=== PATIENT | female | born 1955 | race Caucasian/White ===

== ENCOUNTER 2021-11-02 14:14 | Emergency (ER) | payer MEDICARE, MEDICAID ==
[~2021-11-02 14:14] MED LIST: FAMO-1 PO
== END 2021-11-02 16:04 | disposition left against medical advice (07) ==
LOC: ER 14:14
DX: K46.9 Unspecified abdominal hernia without obstruction or gangrene (principal); Z53.21 Procedure and treatment not carried out due to patient leaving prior to being seen by health care provider

== ENCOUNTER 2021-11-03 04:10 | Emergency (ER) | payer MEDICARE, MEDICAID ==
[~2021-11-03] VITALS: Ht 149.9 cm; Wt 45.6 kg
[2021-11-03 04:15] VITALS: BP 172/80
[2021-11-03 04:43] LABS: CLARITY,URINE CLEAR (Clear); COLOR,URINE YELLOW (Yellow); GLUCOSE, URINE NEGATIVE (Neg); KETONES,URINE NEGATIVE (Neg); LEUKOCYTE ESTERASE ,URINE NEGATIVE (Neg); NITRITES, URINE NEGATIVE (Neg); OCCULT BLOOD,URINE SMALL (Neg); PH,URINE 5.5 (4.8-8.0); PROTEIN,URINE NEGATIVE (Neg); UROBILINOGEN,URINE 0.2 E.U/dL (0.2-1.0)
[2021-11-03 04:46] LABS: BASOPHILS % (AUTO) 0.5 % (0-1); EOSINOPHILS # (AUTO) 0.3 X10'3 (0-0.9); EOSINOPHILS % (AUTO) 3.4 % (0-6); HEMATOCRIT 42.2 % (35.0-45.0); LYMPHOCYTES # (AUTO) 2.3 X10'3 (1.1-4.8); LYMPHOCYTES % (AUTO) 30.9 % (21-51); MEAN CORPUSCULAR HEMOGLOBIN 29.9 PG (27.0-31.0); MEAN CORPUSCULAR HGB CONC 33.1 g/dL (33.0-36.5); MEAN CORPUSCULAR VOLUME 90.6 FL (78-98); MEAN PLATELET VOLUME 7.7 FL (7.4-10.4); MONOCYTES # (AUTO) 0.7 X10'3 (0-0.9); MONOCYTES % (AUTO) 9.4 % (2-12); NEUTROPHILS # (AUTO) 4.1 X10'3 (1.8-7.7); NEUTROPHILS % (AUTO) 55.8 % (42-75); PLATELET COUNT 238 X10'3 (140-440); RED BLOOD COUNT 4.66 X10'6 (4.20-5.60); RED CELL DISTRIBUTION WIDTH 13.5 % (11.5-14.5); WHITE BLOOD COUNT 7.3 X10'3 (4.5-11.0)
[2021-11-03 04:56] LABS: ALANINE AMINOTRANSFERASE 20 U/L (12-78); ALBUMIN 3.8 G/DL (3.4-5.0); ALBUMIN/GLOBULIN RATIO 1.2 (1.1-1.5); ALKALINE PHOSPHATASE 92 IU/L (46-116); ANION GAP 9 (8-16); ASPARTATE AMINO TRANSFERASE 15 U/L (10-37); BILIRUBIN,TOTAL 0.3 MG/DL (0.1-1.0); BLOOD UREA NITROGEN 17 MG/DL (7-18); BUN/CREATININE RATIO 15.9 (6.6-38.0); CALCIUM 8.8 MG/DL (8.5-10.1); CHLORIDE 105 MMOL/L (99-107); CREATININE 1.07 MG/DL (0.40-0.90); GLUCOSE 67 MG/DL (70-104); LIPASE 78 U/L (73-393); POTASSIUM 3.7 MMOL/L (3.5-5.1); SODIUM 144 MMOL/L (135-145); TOTAL PROTEIN 6.9 G/DL (6.4-8.2); eGFR 51 ML/MIN
[2021-11-03 05:27] LABS: UA COLLECTION TYPE CLN CATCH MIDSTREAM
[2021-11-03 05:28] LABS: BACTERIA,URINE NONE SEEN /HPF (Neg); MUCUS STRANDS FEW /LPF (Neg); RBC,URINE 0-2 /HPF (0-2); SQUAMOUS EPITHELIAL CELL,UR FEW /LPF (FEW)
--- NOTE | 2021-11-03 06:39 | NUR ---
DR. SULLIVAN AT BEDSIDE TO D/C PT.
== END 2021-11-03 06:46 | disposition home or self-care (01) ==
LOC: ER 04:11
DX: R10.32 Left lower quadrant pain (principal); R82.71 Bacteriuria; R11.2 Nausea with vomiting, unspecified; Z60.2 Problems related to living alone; Z98.890 Other specified postprocedural states; Z88.8 Allergy status to other drugs, medicaments and biological substances; Z88.5 Allergy status to narcotic agent; Z88.0 Allergy status to penicillin; Z79.899 Other long term (current) drug therapy
CPT/HCPCS: 36415; 74176; 80053; 81001; 83690; 85025; 87088; 99284

== ENCOUNTER 2022-05-17 16:22 | Emergency (ER) | payer MEDICARE, MEDICAID ==
[~2022-05-17] VITALS: Ht 149.9 cm; Wt 45.5 kg
[2022-05-17] MEDS ORDERED: normal saline 1000ML IV soln IVB ONE (16:50)
[2022-05-17] MEDS ORDERED: LIDOcaine 1% W/epiNEPHrine 1:100,000 20ml vial SQ ONE (17:00)
[2022-05-17] MEDS ORDERED: ibuprofen tablet 400 MG TABLET PO ONE (17:35)
[2022-05-17 17:46] LABS: BASOPHILS % (AUTO) 0.3 % (0-1); EOSINOPHILS # (AUTO) 0.1 X10'3 (0-0.9); EOSINOPHILS % (AUTO) 1.2 % (0-6); HEMATOCRIT 43.8 % (35.0-45.0); HEMOGLOBIN 14.6 g/dl (12.0-16.0); LYMPHOCYTES # (AUTO) 1.6 X10'3 (1.1-4.8); LYMPHOCYTES % (AUTO) 14.8 % (21-51); MEAN CORPUSCULAR HGB CONC 33.5 g/dL (33.0-36.5); MEAN CORPUSCULAR VOLUME 89.6 FL (78-98); MEAN PLATELET VOLUME 8.1 FL (7.4-10.4); MONOCYTES # (AUTO) 0.6 X10'3 (0-0.9); MONOCYTES % (AUTO) 5.9 % (2-12); NEUTROPHILS # (AUTO) 8.2 X10'3 (1.8-7.7); NEUTROPHILS % (AUTO) 77.8 % (42-75); PLATELET COUNT 240 X10'3 (140-440); RED BLOOD COUNT 4.88 X10'6 (4.20-5.60); RED CELL DISTRIBUTION WIDTH 13.8 % (11.5-14.5); WHITE BLOOD COUNT 10.6 X10'3 (4.5-11.0)
[2022-05-17 17:59] LABS: ALANINE AMINOTRANSFERASE 22 U/L (12-78); ALBUMIN 3.6 G/DL (3.4-5.0); ALKALINE PHOSPHATASE 93 IU/L (46-116); ANION GAP 6 (8-16); ASPARTATE AMINO TRANSFERASE 25 U/L (10-37); BILIRUBIN,TOTAL 0.3 MG/DL (0.1-1.0); BLOOD UREA NITROGEN 15 MG/DL (7-18); BUN/CREATININE RATIO 11.3 (6.6-38.0); CALCIUM 9.1 MG/DL (8.5-10.1); CHLORIDE 101 MMOL/L (99-107); CREATININE 1.33 MG/DL (0.40-0.90); GLUCOSE 139 MG/DL (70-104); POTASSIUM 4.3 MMOL/L (3.5-5.1); SODIUM 137 MMOL/L (135-145); TOTAL CARBON DIOXIDE 29.8 MMOL/L (24-32); TOTAL PROTEIN 7.1 G/DL (6.4-8.2); eGFR 40 ML/MIN
--- NOTE | 2022-05-17 18:30 | NUR ---
ASSUMED CARE OF PT. PT HAS NO COMPLAINTS AT PRESENT. FAMILY AT BEDSIDE. TECH HAS CLEANED WOUND. SUTURE TRAY IS SET UP.
--- NOTE | 2022-05-17 18:50 | NUR ---
BRIDGETT IN ROOM SUTURING PT.
[2022-05-17] MEDS ORDERED: clindamycin 150mg capsule PO ONE ×2 (19:00)
[2022-05-17] MEDS ORDERED: CLIN150C2 PO (19:06)
[2022-05-17 20:25] VITALS: BP 140/80
== END 2022-05-17 20:33 | disposition home or self-care (01) ==
LOC: ER 16:23
DX: S62.305B Unspecified fracture of fourth metacarpal bone, left hand, initial encounter for open fracture (principal); S62.397B Other fracture of fifth metacarpal bone, left hand, initial encounter for open fracture; Z91.041 Radiographic dye allergy status; Z88.5 Allergy status to narcotic agent; Z88.0 Allergy status to penicillin; W54.0XXA Bitten by dog, initial encounter; Y93.89 Activity, other specified; Y92.89 Other specified places as the place of occurrence of the external cause; Y99.8 Other external cause status
CPT/HCPCS: 12001; 36415; 71045; 73130; 73590; 80053; 83735; 83880; 84484; 85025; 93005; 99285; J7030; A4565; A6446; A6449

== ENCOUNTER 2025-01-09 09:34 | Outpatient (CLI) | payer MEDICARE, MEDICAID ==
--- NOTE | 2025-01-09 11:50 | RADIOLOGY REPORT ---
Exam: US ULTRASOUND OF ABDOMEN Date: 01/09/2025 09:46 AM Clinical History: OTHER SPECIFIED POSTPROCEDURAL STATES Comparison: None Findings: Targeted sonographic evaluation of the soft tissues of the umbilicus was obtained utilizing grayscale and color Doppler imaging. There is no evidence for drainable collection. There is no evidence for solid or cystic mass in the site. No vascular abnormalities identified at this site. IMPRESSION: No definite sonographic abnormality is identified in the soft tissues of the umbilicus END IMPRESSION:
== END 2025-01-09 23:59 | disposition home or self-care (01) ==
LOC: RAD 09:34
PROVIDERS: ATTEND General Practice
DX: Z98.890 Other specified postprocedural states (principal)
CPT/HCPCS: 76705

== ENCOUNTER → 2025-02-13 | Outpatient (CLI) | payer MEDICARE, MEDICAID ==
--- NOTE | 2025-02-13 22:57 | RADIOLOGY REPORT ---
Procedure: CT CT CHEST Reason for study/Clinical History: PULMONARY NODULES Comparison Study: None Exam Date: 02/13/2025 03:06 PM TECHNIQUE: Multidetector CT of the chest was performed from the lung apices to the upper abdomen with out the use of intravenous contract. Axial, coronal and sagittal multiplanar reformats were performed . Radiation Dose Information: CT Dose: CTDI volume is 4.12 mGy. Dose-length product is 161.41 mGy*cm The dose indicators for CT are the volume Computed Tomography (CT) Dose Index (CTDIvol) and the Dose Length Product (DLP), and are measured in units of mGy and mGy-cm, respectively. These indicators are not patient dose, but values generated from the CT scanner acquisition factors. The report includes radiation exposure data for exposures received during this examination. FINDINGS: Lower neck: Normal thyroid. Lungs: No focal consolidation, pleural effusion or pneumothorax. Emphysematous changes of the lung wi th hyperaeration. Heart/Vascular Structures: The cardiac silhouette has transverse lie secondary to severe emphysematou s lung.. Coronary calcification coronary artery disease. No pericardial effusion. Lymph Nodes: No adenopathy Pleura: No pleural effusion or significant pneumothorax. Musculoskeletal: No acute osseous abnormality. Very mild dextroscoliosis of the thoracic spine. Soft tissues: Normal. Upper abdomen: Limited portions of the upper abdomen are unremarkable. There is atherosclerotic hernadez e abdominal aorta and splenic artery with calcified plaques. IMPRESSION: 1. No acute intrathoracic abnormality. 2. Severe emphysematous lungs 3. Coronary artery disease with coronary artery calcification. Radiation optimization: All CT scans at this facility use at least one of these dose optimization vipul hniques: automated exposure control mA and/or kV adjustment per patient size (includes targeted exam s where dose is matched to clinical indication) or iterative reconstruction.
== END | disposition home or self-care (01) ==
LOC: RAD 14:31
PROVIDERS: ATTEND Student in an Organized Health Care Education/Training Program
DX: R91.8 Other nonspecific abnormal finding of lung field (principal); J43.9 Emphysema, unspecified; I25.10 Atherosclerotic heart disease of native coronary artery without angina pectoris; M41.84 Other forms of scoliosis, thoracic region; I70.8 Atherosclerosis of other arteries
CPT/HCPCS: 71250